=== PATIENT | female | born 1985 | race Two or more races ===

== ENCOUNTER 2018-05-23 22:40 | Emergency (ER) | payer OTHER ==
[~2018-05-23] VITALS: Ht 160 cm; Wt 66.6 kg
[2018-05-23 22:51] VITALS: BP 133/62
[2018-05-24 00:07] LABS: BASOPHILS # (AUTO) 0.03 x10^3/uL (0-0.1); BASOPHILS % (AUTO) 0 % (0-1); EOSINOPHILS # (AUTO) 0.12 x10^3/uL (0-0.4); EOSINOPHILS % (AUTO) 1 % (1-7); LYMPHOCYTES # (AUTO) 2.99 x10^3/uL (1-3.4); LYMPHOCYTES % (AUTO) 33 % (22-44); MD NO; MEAN CORPUSCULAR HEMOGLOBIN 32.5 pg (27.0-34.8); MEAN CORPUSCULAR VOLUME 95.6 fL (80-100); MEAN PLATELET VOLUME 7.5 fL (7.4-10.4); MONOCYTES % (AUTO) 6 % (2-9); NEUTROPHILS % (AUTO) 60 % (42-75); PLATELET COUNT 312 x10^3/uL (130-400); RED BLOOD COUNT 3.97 x10^6/uL (3.82-5.3); RED CELL DISTRIBUTION WIDTH 12.8 % (9.6-15.2)
[2018-05-24 00:18] LABS: ALBUMIN 3.6 g/dL (3.4-5.0); ANION GAP 7 mmol/L (5-15); CALCIUM 8.5 mg/dL (8.5-10.1); CHLORIDE 110 mmol/L (98-107)
[2018-05-24 00:22] LABS: ALANINE AMINOTRANSFERASE 55 U/L (12-78); ALKALINE PHOSPHATASE 59 U/L (45-117); BILIRUBIN,TOTAL 0.1 mg/dL (0.2-1.0); CREATININE 0.62 mg/dL (0.55-1.02); TOTAL PROTEIN 7.4 g/dL (6.4-8.2)
[2018-05-24 01:00] LABS: CLUE CELLS NONE SEEN (NONE SEEN)
[2018-05-24 01:01] LABS: WET PREP WBCS NONE SEEN (FEW)
[2018-05-24 01:34] LABS: CULTURE INDICATED? YES; HCG UR SG 1.004 (1.003-1.030); MICROSCOPIC AUTO
[2018-05-24] MEDS ORDERED: AZITHROMYCIN 500 MG TABLET PO ONE (02:30)
[2018-05-24] MEDS ORDERED: CEFTRIAXONE 250 MG IM ONE (02:30)
[2018-05-24] MEDS ORDERED: FLUCONAZOLE 100 MG TABLET PO ONE (02:30)
[2018-05-24] MEDS ORDERED: CEFTRIAXONE 1,000 MG IM ONE (02:30)
[2018-05-24] MEDS ORDERED: CEFTRIAXONE 250 MG ONE (02:32)
[2018-05-24] MEDS ORDERED: FLUCONAZOLE 100 MG TABLET ONE (02:32)
[2018-05-24] MEDS ORDERED: AZITHROMYCIN 500 MG TABLET ONE (02:32)
== END 2018-05-24 02:58 | disposition home or self-care (01) ==
LOC: ED 05-24 02:57
DX: N72 Inflammatory disease of cervix uteri (principal); R10.31 Right lower quadrant pain; B37.3 Candidiasis of vulva and vagina
CPT/HCPCS: 36415; 76700; 76830; 80053; 81001; 81025; 85025; 87077; 87086; 87186; 87210; 87491; 87591; 87808; 96372; 99284; J0696